=== PATIENT | male | born 1965 | race Caucasian/White ===

== ENCOUNTER 2019-08-19 05:02 | Emergency (ER) | payer OTHER ==
[~2019-08-19] VITALS: Ht 182.9 cm; Wt 86.0 kg
[~2019-08-19 05:02] MED LIST: B50 PO; DIAZ10TA PO; GABA800T97 PO; MORP30TA54 PO; PREG150C PO
[2019-08-19 05:30] VITALS: BP 113/67
[2019-08-19] MEDS ORDERED: KETOROLAC 60MG/2ML VIAL IM STA (07:20)
== END 2019-08-19 07:55 | disposition home or self-care (01) ==
LOC: ER 05:02
DX: L03.314 Cellulitis of groin (principal); E11.9 Type 2 diabetes mellitus without complications; G43.909 Migraine, unspecified, not intractable, without status migrainosus; F17.210 Nicotine dependence, cigarettes, uncomplicated; Z85.9 Personal history of malignant neoplasm, unspecified; Z88.0 Allergy status to penicillin; Z88.8 Allergy status to other drugs, medicaments and biological substances; Z90.49 Acquired absence of other specified parts of digestive tract
CPT/HCPCS: 96372; 99284; J1885